=== PATIENT | female | born 1970 | race Two or more races ===

== ENCOUNTER 2020-01-01 22:08 | Emergency (ER) | payer MEDICARE, MEDICAID ==
[~2020-01-01] VITALS: Ht 167.6 cm; Wt 121.6 kg
[~2020-01-01 22:08] MED LIST: ALPR0.5T7 PO; AMIT50TA3 PO; CHOL100047 PO; DICL75TA2 PO; LORA-622 PO; METF-372 PO; METO10TA3 PO; OMEP20CA74 PO; ONDA4INJ IJ; OXYB15TA12 PO; POTATAB17 PO; SITA100T7 PO; VENL75CA3 PO
[2020-01-02 03:12] VITALS: BP 144/74
[2020-01-02] MEDS ORDERED: HYDROcodone-ACET 10/325MG TAB PO ONE (03:30)
== END 2020-01-02 04:02 | disposition home or self-care (01) ==
LOC: ER 22:10
DX: N63.0 Unspecified lump in unspecified breast (principal); E66.8 Other obesity; E78.5 Hyperlipidemia, unspecified; Z68.41 Body mass index [BMI] 40.0-44.9, adult; I10 Essential (primary) hypertension; E11.9 Type 2 diabetes mellitus without complications; Z88.0 Allergy status to penicillin; Z88.2 Allergy status to sulfonamides; Z90.710 Acquired absence of both cervix and uterus
CPT/HCPCS: 76642